=== PATIENT | male | born 1980 | race Caucasian/White ===

== ENCOUNTER 2021-04-26 20:31 | Emergency (ER) | payer OTHER, MEDICAID ==
[~2021-04-26] VITALS: Ht 185.4 cm; Wt 95.3 kg
[2021-04-26 20:48] VITALS: BP_SYST 146
--- NOTE | 2021-04-26 21:44 | NUR ---
Patient to ER bed 3 to gown for evaluation. Side rails up. Report given to NALDO Campos.
--- NOTE | 2021-04-26 21:45 | NUR ---
DR. MELGAR AT BEDSIDE FOR EVALUATION.
--- NOTE | 2021-04-26 21:48 | NUR ---
PATIENT TAKEN TO XRAY VIA AMBULATORY ACCOMPANINED BY RADIOLOGY STAFF.
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
[2021-04-26] MEDS ORDERED: IBUP-1969 PO (23:06)
--- NOTE | 2021-04-26 23:11 | NUR ---
Patient given written and verbal discharge instructions and verbalizes understanding. DR. TALIA MEJIA MD discussed with patient the results and treatment provided. Patient in stable condition. ID arm band removed. Rx of IBUPROFEN given. Patient educated on pain management and to follow up with PMD. Pain Scale 0/10 Opportunity for questions provided and answered. Medication side effect fact sheet provided.
[2021-04-26 23:12] VITALS: BP_SYST 146
== END 2021-04-26 23:11 | disposition home or self-care (01) ==
LOC: SED 20:31
DX: S13.4XXA Sprain of ligaments of cervical spine, initial encounter (principal); S33.5XXA Sprain of ligaments of lumbar spine, initial encounter; S43.402A Unspecified sprain of left shoulder joint, initial encounter; J45.909 Unspecified asthma, uncomplicated; V27.4XXA Motorcycle driver injured in collision with fixed or stationary object in traffic accident, initial encounter; Y93.89 Activity, other specified; Y92.89 Other specified places as the place of occurrence of the external cause; Y99.8 Other external cause status
CPT/HCPCS: 71045; 72040-TC; 72100-TC; 73030; 99284